=== PATIENT | male | born 1950 | race Caucasian/White ===

== ENCOUNTER → 2018-02-01 | Outpatient (CLI) | payer OTHER, MEDICARE ==
[~2018-02-01] VITALS: Ht 180.3 cm; Wt 106.6 kg
[~2018-02-01] MED LIST: ACETAMINOPHEN-1 EAC1 PO; ATORVASTATIN CA40 MG PO; METHOCARBAMOL500 M2 PO; NABUMETONE 500500 M1 PO; SYNTHROID137 MC1 PO
[2018-02-01 08:51] VITALS: BP 129/82
== END | disposition home or self-care (01) ==
LOC: PAIN 07:11
DX: M54.12 Radiculopathy, cervical region (principal); I10 Essential (primary) hypertension; M19.90 Unspecified osteoarthritis, unspecified site; Z79.899 Other long term (current) drug therapy

== ENCOUNTER → 2018-02-24 | Outpatient (CLI) | payer OTHER, MEDICARE ==
[~2018-02-24] VITALS: Ht 180.3 cm; Wt 106.0 kg
[~2018-02-24] MED LIST changes: +MEDROLDOSEPACK PO; +TYLENOL EXTRA500 MG PO
--- NOTE | ~2018-02-24 | HPC ---
[facility] [address] [place] [address] PAIN MANAGEMENT CONSULTATION Name: VINNY THOMPSON Room #: REG YANNA Manuel.#: [id number] Admission: 02/24/18 Attend Phys: Ashutosh Maldonado MD Discharge: Date of : 50 Report #: [id number] THIS REPORT FOR: //name// CC: Ashutosh Sevilla DATE OF SERVICE: 02/24/2018 CHIEF COMPLAINT: The pain has improved, but I still have some discomfort. HISTORY: The patient is a 62-year-old gentleman who has been seen in the pain clinic because of right shoulder pain. He had clinical findings consistent with cervical radiculopathy. He underwent an epidural steroid injection at the last visit. He returns today indicating that the pain has improved. He rates it as a 2.5. States that it improved initially after the injection and has stayed relatively improved at this juncture. Still has some discomfort. Certain movements can exacerbate the pain and he feels it down in his shoulder. He has not had any trauma. Overall, he thinks that things are going reasonably well. He is not sure whether or not to undergo a cervical epidural steroid injection at this juncture, but is open for suggestions. ALLERGIES: LISINOPRIL CAUSED COUGHING. MEDICATIONS: Methocarbamol 500 mg ____, Tylenol Extra Strength 500 mg p.r.n., nabumetone 500 mg b.i.d., Lipitor 40 mg daily, and levothyroxine 137 mcg. PAIN CLINIC ASSESSMENT/PQRS: 1. Osteoarthritis. The patient is not being treated for osteoarthritis or rheumatoid arthritis. 2. Height 5 feet 11 inches, weight 233 pounds, BMI is 32.6. 3. Vital signs: Blood pressure 146/103, pulse 72, respiratory rate 18, room air saturation 100%. 4. Pain intensity 2.5/10. 5. Fall risk. The patient has not fallen in the last 3 months. 6. Blood thinner. The patient is not on a blood thinning medication. 7. Hypertension. The patient is being treated for hypertension. 8. Opioid therapy greater than 6 weeks. The patient is not on his opioid regimen. 9. Risk assessment tool zero/low for opioid use. 10. Functional assessment tool . 11. Recreational drug use. The patient denies use of recreational drugs. 12. Alcohol use. The patient denies use of alcoholic beverages. PHYSICAL EXAMINATION: GENERAL: The patient is a well-developed, well-nourished white male. Appears his stated age. He is alert and oriented x 3. [place] [address] PAIN MANAGEMENT CONSULTATION Name: VINNY THOMPSON Room #: REG [facility]#: [id number] Admission: 02/24/18 Attend Phys: Ashutosh Maldonado MD Discharge: Date of : 50 Report #: [id number] is fluent. HEENT: Normocephalic, atraumatic. Extraocular eye muscles intact. Sclerae nonicteric. Mucous membranes are moist. NECK: Without adenopathy or JVD. The patient has some pain and discomfort in the right side with some numbness and tingling down the right shoulder with some weakness. He has some weakness in the right scapular area. HEART: Regular rate. S1, S2. LUNGS: Clear to auscultation. ABDOMEN: Nontender. Bowel sounds present. MUSCULOSKELETAL: Without significant scoliosis, kyphosis or lordosis. Lower extremity muscle strength judged to be 5/5 for the major muscle groups in the lower extremity. LABORATORY DATA: MRI of the cervical spine dated 01/21/2018: 1. C3-C4 bilateral facet joint arthropathy, diffuse small degenerative bulging disk, and osteophyte with mild central spinal stenosis and moderate left and moderate/severe right foraminal narrowing. 2. C4-C5, mild bilateral facet joint arthropathy. Small midline bulging disk. Mild right foraminal narrowing. 3. C5-C6 degenerative bulging disk and osteophyte with a large right paracentral herniated nucleus pulposus. Moderate central spinal stenosis, severe right foraminal narrowing. 4. C6-C7 mild facet joint arthropathy. Small diffuse degenerative bulging disks eccentric to the right. No significant central spinal stenosis. Mild right-sided foraminal narrowing. Impression: 1. C5/C6 right paracentral herniated nucleus pulposus with severe right-sided foraminal narrowing and moderate central spinal stenosis. 2. C3-C4 diffuse degenerative bulging disks and facet joint arthropathy with mild central spinal stenosis and moderate severe right foraminal narrowing. There is moderate left foraminal narrowing. IMPRESSION: Cervical radiculopathy, right side. Improved after a cervical epidural steroid injection at the last visit. RECOMMENDATIONS: We discussed treatment options. The patient feels that his pain has improved. Still has some discomfort, particularly with certain movements. At this juncture, we will try a more conservative approach. Sometimes when patients have pain rate it at about 2. Additional injections may exacerbate the pain because of the hydraulic effects during the procedure. We will have the patient try a conservative approach. Medrol Dosepak has been administered. Hope that he will find some increasing pain benefit from this. If his pain continued to be problematic, he will return to the pain clinic at which time he would then undergo a second cervical epidural steroid injection. A Medrol Dosepak has been provided for the patient. [facility] [address] [place] [address] PAIN MANAGEMENT CONSULTATION Name: VINNY THOMPSON Room #: REG CLI Berenice#: [id number] Admission: 02/24/18 Attend Phys: Ashutosh Maldonado MD Discharge: Date of : 50 Report #: [id number] We would like to thank you for letting us participate in his care. We hope he continues to improve. By: [id number] Ashutosh Maldonado MD /nt
[2018-02-24 09:35] VITALS: BP 146/103
== END ==
LOC: PAIN 06:44
DX: M54.12 Radiculopathy, cervical region (principal)

== ENCOUNTER → 2018-03-31 | Outpatient (CLI) | payer OTHER, MEDICARE ==
[~2018-03-31] VITALS: Ht 180.3 cm; Wt 107.8 kg
[2018-03-31 10:50] VITALS: BP 138/68
== END | disposition home or self-care (01) ==
LOC: PAIN 10:36
DX: M54.12 Radiculopathy, cervical region (principal); Z79.899 Other long term (current) drug therapy; M25.519 Pain in unspecified shoulder

== ENCOUNTER → 2018-07-14 | Outpatient (CLI) | payer OTHER, MEDICARE ==
[~2018-07-14] VITALS: Ht 180.3 cm; Wt 110.6 kg
[2018-07-14 09:46] VITALS: BP 117/83
--- NOTE | 2018-07-14 10:08 | NUR ---
Pain Clinic Assessment: 1. History of Osteoarthritis: Not Applicable History of Rheumatoid Arthritis: Not Applicable 2. Height: 5 ft. 11 in. 180.3 cm. Weight: 243.8 lb. oz. 110.587 kg. Patient's BMI: 34.0 3. Vital Signs: BP: 117/83 Pulse: 92 Resp: 16 Temp: 02 Sat: 98 ECG Mon: 4. Pain Intensity: 10 5. Fall Risk: Dizziness: N Needs help standing or walking: N Fallen in the last 3 months: N Fall risk comments: 6. Patient on Blood Thinner: None 7. History of Hypertension: Y 8. Opioid Therapy greater than 6 weeks: N Opiate Contract Signed: 9. Risk Assessment Tool Provided: 0-LOW 10. Functional Assessment Tool: 11. Recreational Drug Use: Never Drug Type: Tobacco Use: Never Smoker Tobacco Type: Amount or Packs/day: How Many Years: Alcohol Use: No Frequency: Quant:
--- NOTE | 2018-07-21 08:28 | HPC ---
[facility] [place] [address] PAIN MANAGEMENT CONSULTATION Name: VINNY THOMPSON Room #: REG YANNA PhelpsAllisonZeinabAllison#: [id number] Admission: 07/14/18 ������������������ Attend Phys: Ashutosh Maldonado MD Discharge: ������������������ Date of : 50 Report #: [id number] THIS REPORT FOR: //name// CC: Ashutosh Sevilla DATE OF SERVICE: 07/14/2018 CHIEF COMPLAINT: Neck pain. HISTORY: The patient is a 67-year-old gentleman, who has been seen in the pain clinic. He has been suffering from cervical radiculopathy. He underwent an epidural steroid injection number of months ago in March. He has noted some significant improvement in his pain. He had some activities where he lifted and felt that he may have over worked himself. He is scheduled to go to [place] and [place]. He continues to work. He rates his pain as a 10/10 at this juncture. He is experiencing pain that radiates down to his right shoulder and into his upper arm. He feels that another epidural steroid injection could prove beneficial and would like to proceed. CURRENT MEDICATIONS: Methocarbamol 500 mg, Tylenol Extra Strength 500 mg p.r.n., nabumetone ____ b.i.d. p.r.n., Lipitor 40 mg daily, and levothyroxine 137 mcg. ALLERGIES: LISINOPRIL CAUSE COUGHING. PAIN CLINIC ASSESSMENT AND PQRS: 1. Osteoarthritis involving the neck area. He is not being treated for rheumatoid arthritis. 2. Pain intensity is 10/10. 3. Fall risk. The patient has not fallen in the last 3 months. 4. Blood thinner. The patient is not on a blood thinning medication. 5. Hypertension. The patient is being treated for hypertension. 6. Opioids greater than 6 weeks. The patient is not on an opioid regimen on a regular basis. 7. Risk assessment tool for opioids, low for opioid use. 8. Functional assessment tool . 9. Recreational drug use. The patient denies use of recreational drugs. 10. Tobacco: The patient has never smoked. 11. Alcohol: The patient denies frequent use of alcoholic beverages. PHYSICAL EXAMINATION: GENERAL: The patient is a well-developed, well-nourished white male. He appears his stated age. He is alert and oriented x 3. His affect is appropriate. Speech is fluent. Height is 5 feet 11 inches, weight is 243 pounds, and [place] 34[place] [address] PAIN MANAGEMENT CONSULTATION Name: VINNY THOMPSON Room #: REG [facility]#: [id number] Admission: 07/14/18 ������������������ Attend Phys: Ashutsoh Maldonado MD Discharge: ������������������ Date of : 50 Report #: [id number] VITAL SIGNS: Blood pressure is 117/83, pulse is 92, respiratory rate is 16, and room air saturation is 97%. HEENT: Normocephalic, atraumatic. Extraocular eye muscles are intact. NECK: Without adenopathy or JVD. The patient has some pain and discomfort that is radiating down the right arm with numbness, tingling involving his right arm with tingling in his fingers, weakness, and sensory changes. HEART: Regular rate. S1, S2. LUNGS: Clear to auscultation without rhonchi or rales. ABDOMEN: Nontender. Bowel sounds present. MUSCULOSKELETAL: Without significant scoliosis, kyphosis, or lordosis. Upper extremity muscle strength is judged to be 5/5 on the left side and 5-/5 on the right. LABORATORY DATA: MRI of C5/C6, right paracentral herniated disk with severe right-sided foraminal narrowing and moderate central spinal canal stenosis. IMPRESSION: 1. Cervical radiculopathy on the right side. 2. Joint disease. 3. Hypercholesterolemia. 4. Hypothyroidism. RECOMMENDATIONS: We have discussed treatment options with the patient. Risks and benefits of a cervical epidural steroid injection were again discussed. Possible complications of the procedure, which could include but are not limited to infection, worsening of pain, no improvement in pain, and paralysis were discussed. The patient elects to proceed. PROCEDURE NOTE: The patient was taken to the procedure area. He was then assessed in getting on the examination table. His back was sterilely prepped in the cervical area using Betadine. This was allowed to dry. Fluoroscopy using anterior, posterior as well as lateral viewing were implemented. The patient's C7-T1 interspace was sterilely prepped. A 25-gauge needle was then advanced to this area to numb the area. A 17-gauge Tuohy at the C7-T1 interspace was advanced. After appropriate placement, aspiration was negative at C7-T1. A total of 120 mg of triamcinolone was injected. The patient tolerated the procedure well. A total of 15 seconds fluoroscopy time was used. The patient's score was 6 at the time of his discharge. He will follow up in the future as needed. We would like to thank you for letting us to participate in his care. We hope he continues to improve. ��������������������������������������������� <ELECTRONICALLY SIGNED> ���������������������������������������� By: Ashutosh Maldonado MD ��������������������������������������������� 07/21/18 0828 [id number] Ashutosh Maldonado MD /AP
--- NOTE | 2018-07-22 10:20 | NUR ---
07/22/18 SPOKE WITH PATIENT REGARDING [place] THAT HE IS DOING MUCH BETTER, DECENT AMOUNT OF IMPROVEMENT. PLANS TO SCHEDULE AN APPOINTMENT MID JULY AND THAT SHOULD TAKE CARE OF HIS SYMPTOMS FOR A WHILE. HE RATED HIS CARE GIVEN A 10/10
== END | disposition home or self-care (01) ==
LOC: PAIN 07:06
DX: M54.12 Radiculopathy, cervical region (principal); G89.29 Other chronic pain; I10 Essential (primary) hypertension; M19.90 Unspecified osteoarthritis, unspecified site; E03.9 Hypothyroidism, unspecified; E78.00 Pure hypercholesterolemia, unspecified; Z88.8 Allergy status to other drugs, medicaments and biological substances; Z79.899 Other long term (current) drug therapy; Z98.890 Other specified postprocedural states

== ENCOUNTER → 2018-08-18 | Outpatient (CLI) | payer OTHER, MEDICARE ==
[~2018-08-18] VITALS: Ht 180.3 cm; Wt 108.0 kg
--- NOTE | ~2018-08-18 | HPC ---
[facility] [address] [place] [address] PAIN MANAGEMENT CONSULTATION Name: VINNY THOMPSON Room #: REG YANNA Jackson.#: [id number] Admission: 08/18/18 ������������������ Attend Phys: Ashutosh Maldonado MD Discharge: ������������������ Date of : 50 Report #: [id number] THIS REPORT FOR: //name// CC: Ashutosh Sevilla MD CHIEF COMPLAINT: Pain in the neck that goes down into the right shoulder and into the right arm. HISTORY: The patient is a 67-year-old gentleman who has been seen in the pain clinic because of cervical radiculopathy. He has undergone epidural steroid injections and gleaned benefits from these. He has had no complication from the last injection. He does some traveling. He notes that he is about to undergo on another trip. He has noticed pain as more problematic down into his right upper arm. He did some extra lifting and activities before the injection. He feels that may have aggravated it. He has pain is radiating down to his right shoulder, right upper arm area. It has been problematic since 07/2017. He describes it today as stabbing, aching and rates it as 7/10. He notes that standing, walking and other activities can exacerbate it. Sometimes improves with sitting or when he is lying down. Medications are helpful. He has returned to the pain clinic today with a desire of undergoing another epidural injection in the cervical area to help quell the pain and discomfort. CURRENT MEDICATIONS: Methocarbamol 500 mg, Tylenol Extra Strength 500 mg, nabumetone b.i.d., Lipitor 40 mg daily, levothyroxine 137 mcg. ALLERGIES: LISINOPRIL CAUSES COUGHING. PAIN CLINIC ASSESSMENT/PQRS: 1. Osteoarthritis. The patient has some arthritic changes in his neck. He has not been treated for rheumatoid arthritis. 2. Height 5 feet 11 inches, weight 238 pounds, BMI is 33.2. 3. Vital signs: Blood pressure 131/97, pulse 83, respiratory rate 16, room air saturation 99%, pain score 7/10. 4. Fall risk: The patient has not fallen in the last 3 months. 5. Blood thinner. The patient is not on a blood thinning medication. 6. Hypertension. The patient is being treated for hypertension. 7. Greater than 6 weeks. 8. Risk assessment tool, low for opioid use, 9. Functional assessment tool . 10. Recreational drugs. The patient denies use of recreational drugs. 11. Tobacco: The patient has never smoked. 12. Alcohol: The patient denies frequent use of alcoholic beverages. PHYSICAL EXAMINATION: GENERAL: The patient is a well-developed, well-nourished white male. Appears [address] [address] PAIN MANAGEMENT CONSULTATION Name: JACKSON THOMPSONMECCA Grossman Room #: REG CLI [facility]#: [id number] Admission: 08/18/18 ������������������ Attend Phys: Ashutosh Maldonado MD Discharge: ������������������ Date of : 50 Report #: [id number] his stated age. He is alert and oriented x 3. Affect is appropriate. Speech is fluent. HEENT: Normocephalic, atraumatic. Extraocular eye muscles intact. Sclerae nonicteric. Mucous membranes are moist. NECK: Without adenopathy or JVD. HEART: Regular rate. S1, S2. LUNGS: Clear to auscultation. ABDOMEN: Nontender. Bowel sounds present. MUSCULOSKELETAL: Without significant scoliosis, kyphosis or lordosis. Upper extremity muscle strength is judged to be 5-/5 on the left and 5-/5 on the right. IMPRESSION: 1. Cervical radiculopathy on the right side. The patient has a right paracentral herniated disk with severe right-sided foraminal narrowing and moderate central spinal canal stenosis. 2. Joint disease. 3. Hypercholesterolemia. 4. Hypothyroidism. RECOMMENDATIONS: We discussed treatment options with the patient. Risks and benefits of a cervical epidural steroid injection were again reviewed. Possible complications of the procedure, which could include but are not limited to infection, worsening of pain, bleeding, nerve damage were discussed with the patient and he elects to proceed. PROCEDURE NOTE: The patient was placed in the prone position. Fluoroscopy was used in the anterior, posterior as well as lateral sides to view. A pillow was placed under his shoulders to improve positioning and provide patient comfort. The C6-C7 area was sterilely prepped with a Betadine solution. A 0.25% bupivacaine was infiltrated using a 25-gauge needle. A 17-gauge Tuohy with a midline approach was undertaken. Aspiration was negative. A total of 120 mg triamcinolone was injected. The patient tolerated the procedure well. There were no complications. He remained in the pain clinic for an appropriate amount of time. Rated his pain as 0 at the time of discharge. We would like to thank you for letting us participate in his care. We hope he continues to improve. ��������������������������������������������� ���������������������������������������� By: ��������������������������������������������� 0943 [id number] Ashutosh Maldonado MD /mecca
[2018-08-18 09:53] VITALS: BP 131/97
--- NOTE | 2018-08-18 10:16 | NUR ---
Pain Clinic Assessment: 1. History of Osteoarthritis: Not Applicable History of Rheumatoid Arthritis: Not Applicable 2. Height: 5 ft. 11 in. 180.3 cm. Weight: 238.2 lb. oz. 108.047 kg. Patient's BMI: 33.2 3. Vital Signs: BP: 131/97 Pulse: 83 Resp: 16 Temp: 02 Sat: 99 ECG Mon: 4. Pain Intensity: 7 5. Fall Risk: Dizziness: N Needs help standing or walking: N Fallen in the last 3 months: N Fall risk comments: 6. Patient on Blood Thinner: None 7. History of Hypertension: Y 8. Opioid Therapy greater than 6 weeks: N Opiate Contract Signed: 9. Risk Assessment Tool Provided: 0-LOW 10. Functional Assessment Tool: 11. Recreational Drug Use: Never Drug Type: Tobacco Use: Never Smoker Tobacco Type: Amount or Packs/day: How Many Years: Alcohol Use: No Frequency: Quant:
== END | disposition home or self-care (01) ==
LOC: PAIN 07:07
DX: M50.10 Cervical disc disorder with radiculopathy, unspecified cervical region (principal); M48.02 Spinal stenosis, cervical region; G89.29 Other chronic pain; I10 Essential (primary) hypertension; M19.90 Unspecified osteoarthritis, unspecified site; E03.9 Hypothyroidism, unspecified; E78.00 Pure hypercholesterolemia, unspecified; Z79.899 Other long term (current) drug therapy; Z88.8 Allergy status to other drugs, medicaments and biological substances

== ENCOUNTER → 2018-11-03 | Outpatient (CLI) | payer OTHER, MEDICARE ==
[~2018-11-03] VITALS: Ht 180.3 cm; Wt 109.5 kg
--- NOTE | ~2018-11-03 | HPC ---
[facility] [place] [address] PAIN MANAGEMENT CONSULTATION Name: VINNY THOMPSON Room #: REG YANNA PhelpsAllisonZeinabAllison#: [id number] Admission: 11/03/18 ������������������ Attend Phys: Ashutosh Maldonado MD Discharge: ������������������ Date of : 50 Report #: [id number] THIS REPORT FOR: //name// CC: Ashutosh Sevilla DATE OF SERVICE: 11/03/2018 CHIEF COMPLAINT: "Pain has improved with injections in the past and now is increased. I am having some pain in the right posterior neck area as well as pain down in my right arm. The new pain is on the left side. It goes down into my left shoulder." HISTORY: The patient is a 68-year-old gentleman who has been followed in the pain clinic because of cervical radiculopathy. He has undergone epidural steroid injections. Each injection has been helpful. He does travel quite a bit. He has noted a recurrence of pain and discomfort involving the right side. He states that he did not want to let it get as bad as it was at the last visit. He has noted some new discomfort in the left deltoid area. He describes it as a stabbing, aching discomfort. It has been problematic since 07/2017. Notes that the pain can be exacerbated with lifting. He has noticed that coughing can sometimes increase his discomfort. Pain improves when he is lying down as well as with his medications. He rates his pain as 2/10 at this juncture. CURRENT MEDICATIONS: Methocarbamol 500 mg, Tylenol Extra Strength 500 mg, nabumetone b.i.d., Lipitor 40 mg, levothyroxine 137 mcg. ALLERGIES: LISINOPRIL CAUSES COUGHING. PAIN CLINIC ASSESSMENT AND PQRS: 1. Osteoarthritis. The patient has some arthritic changes in the neck. He has not been treated for rheumatoid arthritis. 2. Height 5 feet 11 inches, weight 241 pounds, BMI is 33.7. 3. Vital signs; blood pressure is 146/111, pulse is 86, respiratory rate 16, room air saturations is 100%. 4. Pain intensity, 06/06. 5. Fall history. The patient has not fallen in the last 3 months. 6. Blood thinner. The patient is not on a blood thinning medication. 7. Hypertension. The patient is not being treated for hypertension. 8. Opioids greater than 6 weeks. The patient receives his medications from one source, the pain clinic. 9. Risk assessment tool, low for opioid use. 10. Functional assessment tool, . 11. Recreational drug use. The patient denies use of recreational drugs. 12. Alcohol: The patient denies frequent use of alcoholic beverages. [address] [address] PAIN MANAGEMENT CONSULTATION Name: VINNY THOMPSON Room #: REG CL Berenice#: [id number] Admission: 11/03/18 ������������������ Attend Phys: Ashutosh Maldonado MD Discharge: ������������������ Date of : 50 Report #: [id number] PHYSICAL EXAMINATION: GENERAL: The patient is a well-developed, well-nourished, white male. Appears his stated age. He is alert and oriented x 3. His affect is appropriate. Speech is fluent. HEENT: Normocephalic, atraumatic. Extraocular eye muscles intact. Sclerae nonicteric. Mucous membranes are moist. NECK: Without adenopathy or JVD. HEART: Regular rate. S1, S2. LUNGS: Clear to auscultation. ABDOMEN: Nontender. Bowel sounds present. MUSCULOSKELETAL: Without significant scoliosis, kyphosis or lordosis. Upper extremity muscle strength is judged to be 5-/5 on the left and 5-/5 on the right. The patient notes some increased discomfort in the right deltoid area. Notes some weakness in the left deltoid area and some increased discomfort in the left deltoid area with pain down the posterior portion of his neck and down into the arm and forearm on the right. IMPRESSION: 1. Cervical radiculopathy on the right side. The patient has a right paracentral herniated disk with severe right-sided foraminal narrowing and moderate central spinal canal stenosis. 2. Joint disease. 3. Hypercholesterolemia. 4. Hypothyroidism. RECOMMENDATIONS: We discussed treatment options with the patient. Risks and benefits of an epidural steroid injection were discussed. Possible complications of the procedure were reviewed. They could include but are not limited to infection, worsening of pain, no improvement in pain, spinal headache. The patient elects to proceed. PROCEDURE NOTE: The patient was taken to the procedure area. He was then assisted in getting on the examination table. His neck was sterilely prepped with a Betadine solution in the posterior area. Fluoroscopy using anterior, posterior as well as lateral viewing were implemented. The patient's neck was then infiltrated at C7-T1. This area had been sterilely prepped with Betadine and a 25-gauge needle with 0.25% bupivacaine was infiltrated. At the C7/T1 interspace, a 17-gauge Tuohy with loss of resistance technique was used to gain access to the epidural space. There was no CSF, heme or paresthesia. Total of 80 mg Depo-Medrol, 40 mg triamcinolone and 2 mL of 0.25% bupivacaine was injected. The patient tolerated the procedure well. There were no complications. A total of 10 seconds fluoroscopy time was used. The patient's pain decreased to 1 at the time of discharge. He will follow up in the future as needed. [facility] [address] [place] [address] PAIN MANAGEMENT CONSULTATION Name: VINNY THOMPSON Chauncey Room #: REG CLI Berenice#: [id number] Admission: 11/03/18 ������������������ Attend Phys: Ashutosh Maldonado MD Discharge: ������������������ Date of : 50 Report #: [id number] We would like to thank you for letting us participate in his care. ��������������������������������������������� ���������������������������������������� By: ��������������������������������������������� [id number] Ashutosh Maldonado MD /AP
[2018-11-03 09:51] VITALS: BP 146/111
--- NOTE | 2018-11-03 10:06 | NUR ---
Pain Clinic Assessment: 1. History of Osteoarthritis: Not Applicable History of Rheumatoid Arthritis: Not Applicable 2. Height: 5 ft. 11 in. 180.3 cm. Weight: 241.4 lb. oz. 109.499 kg. Patient's BMI: 33.7 3. Vital Signs: BP: 146/111 Pulse: 86 Resp: 16 Temp: 02 Sat: 100 ECG Mon: 4. Pain Intensity: 2 5. Fall Risk: Dizziness: N Needs help standing or walking: N Fallen in the last 3 months: N Fall risk comments: 6. Patient on Blood Thinner: None 7. History of Hypertension: N 8. Opioid Therapy greater than 6 weeks: N Opiate Contract Signed: 9. Risk Assessment Tool Provided: 0-LOW 10. Functional Assessment Tool: 11. Recreational Drug Use: Never Drug Type: Tobacco Use: Never Smoker Tobacco Type: Amount or Packs/day: How Many Years: Alcohol Use: No Frequency: Quant:
== END | disposition home or self-care (01) ==
LOC: PAIN 10-27 08:27
DX: M50.10 Cervical disc disorder with radiculopathy, unspecified cervical region (principal); M48.02 Spinal stenosis, cervical region; E78.00 Pure hypercholesterolemia, unspecified; E03.9 Hypothyroidism, unspecified; M19.90 Unspecified osteoarthritis, unspecified site; Z79.899 Other long term (current) drug therapy; Z98.890 Other specified postprocedural states; Z88.8 Allergy status to other drugs, medicaments and biological substances

== ENCOUNTER → 2018-12-29 | Outpatient (CLI) | payer OTHER, MEDICARE ==
[~2018-12-29] VITALS: Ht 180.3 cm; Wt 110.3 kg
[~2018-12-29] MED LIST changes: +TERBINAFINE HC250 MG PO; +TRAMADOL 50 MG50 MG PO
--- NOTE | ~2018-12-29 | HPC ---
[facility] [address] [address] PAIN MANAGEMENT CONSULTATION Name: VINNY THOMPSON Room #: REG [facility]#: [id number] Admission: 12/29/18 Attend Phys: Ashutosh Maldonado MD Discharge: Date of : 50 Report #: [id number] THIS REPORT FOR: //name// CC: Ashutosh Sevilla DATE OF SERVICE: 12/29/2018 CHIEF COMPLAINT: Neck pain that goes down to the right shoulder and into the right upper arm. HISTORY: The patient is a 68-year-old gentleman who has been seen in the pain clinic because of cervical radiculopathy. He has undergone epidural steroid injections in the past. They have been quite beneficial. He returns today indicating that he has continued to have pain. He is contemplating going out of town for a few days to weeks. He would like to consider undergoing a cervical epidural steroid injection to help decrease the pain and discomfort he is experiencing. As you recall, he does quite a bit of traveling. He has been having pain in the usual area. It involves his left deltoid. It radiates down into his arm. He describes it as an aching feeling. Rates it as a 5/10 at this point. Lifting his arm exacerbates his discomfort. He has been noticing some left shoulder discomfort at this point. ALLERGIES: LISINOPRIL CAUSES COUGHING. CURRENT MEDICATIONS: Methocarbamol 500 mg, Tylenol Extra Strength 500 mg, nabumetone 500 mg b.i.d., Lipitor 40 mg, levothyroxine 137 mcg, and terbinafine 250 mg. PAIN CLINIC ASSESSMENT AND PQRS: 1. Osteoarthritis. The patient has some arthritic changes in his neck. He is not being treated for rheumatoid arthritis. 2. Height 5 feet 11 inches, weight 243 pounds, BMI 33.9. 3. Vital Signs: Blood pressure 144/75, pulse 83, respiratory rate 16, room air saturation 97%. 4. Pain intensity 09/03. 5. Fall risk. The patient has not fallen in the last 3 months. 6. Blood thinner. The patient is not on a blood thinning medication. 7. Opioids. The patient is not on an opioid regimen. 8. Risk assessment tool, low for opioid use. 9. Functional assessment tool . 10. Recreational drug use: The patient denies. 11. Tobacco: The patient has never smoked. 12. Alcohol: The patient has not drank in many years. PHYSICAL EXAMINATION: [facility] [address] [place] [address] PAIN MANAGEMENT CONSULTATION Name: VINNY THOMPSON Room #: REG [facility]#: [id number] Admission: 12/29/18 Attend Phys: Ashutosh Maldonado MD Discharge: Date of : 50 Report #: [id number] GENERAL: The patient is a well-developed, well-nourished white male. Appears his stated age. He is alert and oriented x 3. His affect is appropriate. Speech is fluent. HEENT: Normocephalic, atraumatic. Extraocular eye muscles intact. Sclerae nonicteric. Mucous membranes are moist. NECK: Without adenopathy or JVD. The patient has pain and discomfort involving the right arm with pain that is radiating down into the right shoulder, right upper arm. He states that the pain feels severe and that his symptoms are beginning to come back. Also, notes some discomfort involving the left shoulder with pain. HEART: Regular rate. CHEST: Clear to auscultation. ABDOMEN: Nontender. MUSCULOSKELETAL: Without significant scoliosis, kyphosis or lordosis. Lower extremity muscle strength judged to be 5/5 for the major muscle groups in the lower extremity. Upper extremity muscle strength judged to be 5-/5 for the major muscle groups in the upper extremity. More pian has been experience of the right side with pain down into his right deltoid. He has some weakness in the left deltoid as well. He has some pain in the posterior portion of his neck and down into the neck area. IMPRESSION: 1. Cervical radiculopathy history. The patient has a right paracentral herniated disk with severe right-sided foraminal narrowing and moderate central spinal canal stenosis. 2. Joint disease. 3. Hypercholesterolemia. 4. Hypothyroidism. RECOMMENDATIONS: We discussed treatment options with the patient. At this juncture, we will have the patient try tramadol 50 mg 1 p.o. q. 4 hours. He will also continue to use nonsteroidal anti-inflammatory medications. He will return to the Pain Clinic in the near future. At that time, he will then undergo a cervical epidural steroid injection to help quell and decrease the pain and discomfort he is experiencing. He will call us if he has any significant changes in his pain, characteristics. We would like to thank you for letting us participate in his care. We hope he continues to improve. By: [id number] Ashutosh Maldonado MD /mecca
[2018-12-29 09:44] VITALS: BP 144/75
--- NOTE | 2018-12-29 10:01 | NUR ---
Pain Clinic Assessment: 1. History of Osteoarthritis: Not Applicable History of Rheumatoid Arthritis: Not Applicable 2. Height: 5 ft. 11 in. 180.3 cm. Weight: 243.2 lb. oz. 110.315 kg. Patient's BMI: 33.9 3. Vital Signs: BP: 144/75 Pulse: 83 Resp: 16 Temp: 02 Sat: 97 ECG Mon: 4. Pain Intensity: 5 5. Fall Risk: Dizziness: N Needs help standing or walking: N Fallen in the last 3 months: N Fall risk comments: 6. Patient on Blood Thinner: None 7. History of Hypertension: N 8. Opioid Therapy greater than 6 weeks: N Opiate Contract Signed: 9. Risk Assessment Tool Provided: 0-LOW 10. Functional Assessment Tool: 11. Recreational Drug Use: Never Drug Type: Tobacco Use: Never Smoker Tobacco Type: Amount or Packs/day: How Many Years: Alcohol Use: No Frequency: Quant:
== END ==
LOC: PAIN 06:47
DX: M54.12 Radiculopathy, cervical region (principal); M48.02 Spinal stenosis, cervical region; E03.9 Hypothyroidism, unspecified; E78.00 Pure hypercholesterolemia, unspecified; Z79.899 Other long term (current) drug therapy; Z88.8 Allergy status to other drugs, medicaments and biological substances

== ENCOUNTER → 2019-01-14 | Outpatient (CLI) | payer OTHER, MEDICARE ==
[~2019-01-14] VITALS: Ht 180.3 cm; Wt 109.2 kg
--- NOTE | ~2019-01-14 | HPC ---
[facility] [place] [address] PAIN MANAGEMENT CONSULTATION Name: VINNY THOMPSON Room #: REG [facility]#: [id number] Admission: 01/14/19 Attend Phys: Ashutosh Maldonado MD Discharge: Date of : 50 Report #: [id number] THIS REPORT FOR: //name// CC: Ashutosh Sevilla DATE OF SERVICE: 01/14/2019 CHIEF COMPLAINT: Pain in the right shoulder and down to the right arm. I am here for injection. HISTORY: The patient is a 68-year-old gentleman, who has been followed in the pain clinic because of cervical radiculopathy. He has undergone epidural steroid injections. In the past, these have been beneficial. He has returned today with the hopes of undergoing another epidural injection. He has returned from travel in the past week. He would like to proceed with a cervical epidural steroid injection. He is having pain that continues to be quite debilitating. It involves his left side with pain radiating down into his arm. He rates his pain as a 4-5/10 at this point. CURRENT MEDICATIONS: Methocarbamol 500 mg, Tylenol Extra Strength 500 mg, ____ 500 mg, Lipitor 40 mg, levothyroxine 137 mcg, and terbinafine 250 mg. ALLERGIES: LISINOPRIL CAUSE COUGHING. PAIN CLINIC ASSESSMENT AND PQRS: 1. Osteoarthritis. The patient has some osteoarthritic changes in his neck. He is not being treated for rheumatoid arthritis. 2. Pain intensity is 4-5/10. 3. Fall risk. The patient has not fallen in the last 3 months. 4. Blood thinner. The patient is not on a blood thinning medication. 5. Hypertension. The patient is not being treated for hypertension. 6. Risk assessment tool, low for opioids. 7. Functional assessment tool, . 8. Recreational drug use. The patient denies. 9. Tobacco: The patient has never smoked. 10. Alcohol. The patient denies frequent use of alcoholic beverages. PHYSICAL EXAMINATION: GENERAL: The patient is a well-developed, well-nourished white male. He appears his stated age. He is alert and oriented x 3. His affect is appropriate. Speech is fluent. Height is 5 feet 11 inches, weight is 240 pounds, and BMI is 33.6. VITAL SIGNS: Blood pressure is 153/80, pulse is 82, respiratory rate is 18, and room air saturation is 99%. HEENT: Normocephalic, atraumatic. Extraocular [place] [address] PAIN MANAGEMENT CONSULTATION Name: VINNY THOMPSON Room #: REG [facility]#: [id number] Admission: 01/14/19 Attend Phys: Ashutosh Maldonado MD Discharge: Date of : 50 Report #: [id number] nonicteric. Mucous membranes are moist. NECK: Without adenopathy or JVD. The patient has pain and discomfort that is radiating down to his right arm and into the right shoulder. He also has some involvement in the left shoulder. HEART: Regular rate. CHEST: Clear to auscultation. ABDOMEN: Nontender. MUSCULOSKELETAL: Without significant scoliosis, kyphosis, or lordosis. Lower extremity muscle strength is judged to be 5/5 for the major muscle groups in the lower extremity. Upper extremity muscle strength is judged to be 5-/5 for the major muscle groups in the upper extremity secondary to pain and discomfort. The patient has right-sided pain that radiates down into his right deltoid. He has some weakness in his left deltoid area as well. He has some pain in the posterior portion of his neck with pain radiating down into the posterior portion of his neck. IMPRESSION: 1. Cervical radiculopathy history, right side, with a right paracentral herniated disk, described as causing severe right-sided foraminal narrowing and moderate central spinal canal stenosis. 2. Joint disease. 3. Hypertension. 4. Hypothyroidism. RECOMMENDATIONS: We have discussed treatment options with the patient. Risks and benefits of an epidural steroid injection were again discussed. They include but are not limited to infection, worsening of pain, no improvement in pain, nerve damage, and trauma with paralysis or weakness and the patient elects to proceed. PROCEDURE NOTE: The patient was taken to the procedure area. He was then assisted in getting on the examination table. His back was sterilely prepped with a Betadine solution. A 0.25% bupivacaine was infiltrated. A 17-gauge Tuohy with loss of resistance technique was used to gain access to the epidural space at the C7-T1 interspace. Aspiration was negative. A ____ mg of triamcinolone was injected. The patient remained in the pain clinic for an appropriate amount of time. His pain had decreased from 5-0.5%. He will follow up as needed. We would like to thank you for letting us to participate in his care. We hope he continues to improve. By: [id number] Ashutosh Maldonado MD /AP
[2019-01-14 11:11] VITALS: BP 153/80
--- NOTE | 2019-01-14 11:23 | NUR ---
Pain Clinic Assessment: 1. History of Osteoarthritis: KNEES History of Rheumatoid Arthritis: DENIES 2. Height: 5 ft. 11 in. 180.3 cm. Weight: 240.8 lb. oz. 109.226 kg. Patient's BMI: 33.6 3. Vital Signs: BP: 153/80 Pulse: 82 Resp: 18 Temp: 02 Sat: 99 ECG Mon: 4. Pain Intensity: 4-5 5. Fall Risk: Dizziness: N Needs help standing or walking: N Fallen in the last 3 months: N Fall risk comments: 6. Patient on Blood Thinner: None 7. History of Hypertension: N 8. Opioid Therapy greater than 6 weeks: N Opiate Contract Signed: 9. Risk Assessment Tool Provided: 0-LOW 10. Functional Assessment Tool: 11. Recreational Drug Use: Never Drug Type: Tobacco Use: Never Smoker Tobacco Type: Amount or Packs/day: How Many Years: Alcohol Use: No Frequency: Quant:
== END | disposition home or self-care (01) ==
LOC: PAIN 06:51
DX: M50.13 Cervical disc disorder with radiculopathy, cervicothoracic region (principal); M99.71 Connective tissue and disc stenosis of intervertebral foramina of cervical region; M48.02 Spinal stenosis, cervical region; I10 Essential (primary) hypertension; E03.9 Hypothyroidism, unspecified; Z88.8 Allergy status to other drugs, medicaments and biological substances; Z79.899 Other long term (current) drug therapy

== ENCOUNTER → 2019-03-18 | Outpatient (CLI) | payer OTHER, MEDICARE ==
[~2019-03-18] VITALS: Ht 180.3 cm; Wt 110.7 kg
[~2019-03-18] MED LIST changes: +NEURONTIN 300300 M1 PO; +TOPROL XL25 MG PO
--- NOTE | ~2019-03-18 | HPC ---
[facility] [place] [address] PAIN MANAGEMENT CONSULTATION Name: VINNY THOMPSON Room #: REG [facility]#: [id number] Admission: 03/18/19 Attend Phys: Ashutosh Maldonado MD Discharge: Date of : 50 Report #: [id number] THIS REPORT FOR: //name// CC: Ashutosh Sevilla DATE OF SERVICE: 03/18/2019 CHIEF COMPLAINT: Pain in the right shoulder area. HISTORY: The patient is a 68-year-old gentleman who has been followed in the Pain Clinic. He has a history of cervical radiculopathy. Epidural steroid injections in the past have been helpful. He has noticed an increase in pain involving his right shoulder, neck and arm. He has returned to the Pain Clinic with the desire for medical advice. At this juncture, he would like to try a conservative approach. He is not on an anti-seizure medication like gabapentin. He feels that his pain has returned. He rates it as a 4-5, but at this point, he would like to try the most conservative approach and consider another injection in the future should his pain continue to be problematic. ALLERGIES: LISINOPRIL cause coughing. CURRENT MEDICATIONS: Methocarbamol 500 mg, Tylenol Extra Strength 500 mg, Lipitor 40 mg, levothyroxine 137 mcg, and terbinafine 250 mg. PAIN CLINIC ASSESSMENT/PQRS: 1. The patient has some osteoarthritic changes involving his neck. He is not being treated for rheumatoid arthritis. 2. Height 5 feet 11 inches, weight 244 pounds, and BMI is 34.4. 3. Vital signs: Blood pressure 152/92, pulse 72, respiratory rate 14, room air saturation is 100%. 4. Pain intensity, 4/10. 5. Fall history: The patient has not fallen in the last 3 months. 6. Blood thinner. The patient is not on a blood thinning medication. 7. Hypertension. The patient is not being treated for hypertension. 8. Opioids greater than 6 weeks. The patient received medication from one source. 9. Risk assessment tool, low for opioid use. 10. Functional assessment tool, . 11. Recreational drug use: The patient denies. 12. Tobacco: The patient has never smoked. 13. Alcohol. The patient denies frequent use of alcoholic beverages. PHYSICAL EXAMINATION: GENERAL: The patient is a well-developed, well-nourished white male. Appears his stated age. He is alert and oriented x 3. [place] [address] PAIN MANAGEMENT CONSULTATION Name: VINNY THOMPSON Room #: REG [facility]#: [id number] Admission: 03/18/19 Attend Phys: Ashutosh Maldonado MD Discharge: Date of : 50 Report #: [id number] Speech is fluent. HEENT: Normocephalic, atraumatic. Extraocular eye muscles intact. Sclerae nonicteric. Mucous membranes are moist. MUSCULOSKELETAL: The patient has some soreness in his neck. Has pain and discomfort, which is radiating down the right shoulder, arm and down into his hand. Does have some involvement on occasion in the left shoulder. CHEST: Clear to auscultation. ABDOMEN: Nontender. EXTREMITIES: The patient without significant scoliosis, kyphosis or lordosis. Lower extremity muscle strength is judged to be 5/5 for the major muscle groups in the lower extremity. Upper extremity muscle strength is judged to be generally 5-/5 for the major muscle groups in the upper extremity. IMPRESSION: 1. Cervical radiculopathy history, right side. 2. History of right paracentral herniated disk described as severe on the right side with right sided foraminal narrowing and moderate central spinal canal stenosis. 3. Joint disease. 4. Hypertension. 5. Hypothyroidism. RECOMMENDATIONS: We discussed treatment options with the patient. At this juncture, we will try gabapentin. Sometimes these medications can be helpful with neuropathic types of pain. It is not a narcotic. We will have the patient give it a try at 300 mg 1 p.o. t.i.d. He will increase this as we have instructed. Hopefully, he will start to notice an improvement. The patient has also been given a Medrol Dosepak to take in the interim. Hopefully, this medication in conjunction with the gabapentin will help to decrease the pain and discomfort that he has. Should his pain continued to be problematic, he will return to the Pain Clinic, at which time, he was then proceed with a cervical epidural steroid injection, should he desire. We would like to thank you for letting us participate in his care. We hope he continues to improve. By: [id number] Ashutosh Maldonado MD /mecca
[2019-03-18 09:33] VITALS: BP 152/92
--- NOTE | 2019-03-18 09:44 | NUR ---
Pain Clinic Assessment: 1. History of Osteoarthritis: KNEES History of Rheumatoid Arthritis: DENIES 2. Height: 5 ft. 11 in. 180.3 cm. Weight: 244.0 lb. oz. 110.678 kg. Patient's BMI: 34.0 3. Vital Signs: BP: 152/92 Pulse: 72 Resp: 14 Temp: 02 Sat: 100 ECG Mon: 4. Pain Intensity: 4 5. Fall Risk: Dizziness: N Needs help standing or walking: N Fallen in the last 3 months: N Fall risk comments: 6. Patient on Blood Thinner: None 7. History of Hypertension: N 8. Opioid Therapy greater than 6 weeks: N Opiate Contract Signed: 9. Risk Assessment Tool Provided: 0-LOW 10. Functional Assessment Tool: 11. Recreational Drug Use: Never Drug Type: Tobacco Use: Never Smoker Tobacco Type: Amount or Packs/day: How Many Years: Alcohol Use: No Frequency: Quant:
== END ==
LOC: PAIN 06:50
DX: M25.511 Pain in right shoulder (principal); M54.12 Radiculopathy, cervical region; I10 Essential (primary) hypertension; E03.9 Hypothyroidism, unspecified